=== PATIENT | female | born 1955 | race Caucasian/White ===

== ENCOUNTER 2016-11-13 15:52 | Inpatient (IN) | payer OTHER ==
[~2016-11-13] VITALS: Ht 157.5 cm; Wt 69.1 kg
[2016-11-13] MEDS ORDERED: METF10002 PO (16:22)
[2016-11-13] MEDS ORDERED: FLUT1DIS3 INH (16:22)
[2016-11-13] MEDS ORDERED: HYDR25TA6 PO (16:22)
[2016-11-13] MEDS ORDERED: AMLO5TAB2 PO (16:22)
[2016-11-13] MEDS ORDERED: ASPI-496 PO (16:22)
[2016-11-13] MEDS ORDERED: LOVA10TA PO (16:22)
[2016-11-13] MEDS ORDERED: LOSA100T6 PO (16:22)
[2016-11-13] MEDS ORDERED: SODIUM CHLORIDE FLUSH 10ML SYR IVF ONE (16:30)
[2016-11-13] MEDS ORDERED: ONDANSETRON 2MG/ML, 2ML IVPush ONE (16:30)
[2016-11-13 16:50] LABS: BLOOD UREA NITROGEN 18 mg/dL (7-18)
[2016-11-13 16:55] LABS: IS PT STATUS REG ER OR PRE ER? YES
[2016-11-13] MEDS ORDERED: ASPIRIN 81 MG TABLET CHEW PO ONE (17:00)
[2016-11-13] MEDS ORDERED: ONDANSETRON 2MG/ML, 2ML ONE (17:22)
[2016-11-13] MEDS ORDERED: ASPIRIN 81 MG TABLET CHEW ONE (17:22)
[2016-11-13] MEDS ORDERED: morphine SULFATE 10 MG/ML, 1ML IVPush PRN (18:30)
[2016-11-13] MEDS ORDERED: TEMAZEPAM 15 MG CAPSULE PO PRN (18:30)
[2016-11-13] MEDS ORDERED: DOCUSATE 100 MG CAPSULE PO PRN (18:30)
[2016-11-13] MEDS ORDERED: HEPARIN 5,000 UNITS/ML, 1ML ONE (19:06)
[2016-11-13] MEDS: HEPARIN 5,000 UNITS/ML, 1ML SQ SCH (19:09)
[2016-11-13] MEDS ORDERED: LOVASTATIN 40 MG TABLET PO SCH (21:00)
[2016-11-13] MEDS ORDERED: ALBUTEROL SULFATE 2.5 MG/3 ML NPPB PRN (21:30)
[2016-11-13] MEDS: INSULIN ASPART 100 UNITS/ML, PEN SQ-INSULIN SCH (22:25)
[2016-11-13 22:28] VITALS: BP 150/89
[2016-11-13 23:02] LABS: IS PT STATUS REG ER OR PRE ER? NO
[2016-11-14] MEDS ORDERED: PNEUMOCOCCAL 23 VACCINE IM-VACC ONE (02:30)
[2016-11-14 03:39] VITALS: BP 129/77
[2016-11-14] MEDS: HEPARIN 5,000 UNITS/ML, 1ML SQ SCH ×2 (03:41→12:02)
[2016-11-14 05:33] LABS: IS PT STATUS REG ER OR PRE ER? NO
[2016-11-14 06:45] VITALS: BP 115/71
[2016-11-14] MEDS: INSULIN ASPART 100 UNITS/ML, PEN SQ-INSULIN SCH ×2 (07:53→12:02)
[2016-11-14] MEDS ORDERED: REGADENOSON 0.4 MG/5 ML SYRINGE ONE (08:13)
[2016-11-14] MEDS ORDERED: FLUTICASONE/VILANTEROL 100-25MCG/INH INH SCH (09:00)
[2016-11-14] MEDS ORDERED: AMLODIPINE 5 MG TABLET PO SCH (09:00)
[2016-11-14] MEDS ORDERED: HYDROCHLOROTHIAZIDE 25 MG TABLET PO SCH (09:00)
[2016-11-14] MEDS ORDERED: LOSARTAN 50MG TABLET PO SCH (09:00)
[2016-11-14] MEDS ORDERED: ASPIRIN 81 MG TABLET EC PO SCH (09:00)
[2016-11-14 12:48] VITALS: BP 144/80
[2016-11-14] MEDS ORDERED: ALBU18HF INH (15:36)
[2016-11-14] MEDS ORDERED: CARV6.2512 PO (15:36)
[2016-11-14] MEDS ORDERED: CARVEDILOL 6.25 MG TABLET PO SCH (18:00)
== END 2016-11-14 17:00 | disposition home or self-care (01) | DRG 392 ==
LOC: ED 17:35 → EDIP 17:36 → ED 18:02 → 5SO 20:27 → DCLOUNGE 11-14 16:40
PROVIDERS: ADMIT Family Medicine; ATTEND Family Medicine
DX: K21.9 Gastro-esophageal reflux disease without esophagitis (principal); J45.901 Unspecified asthma with (acute) exacerbation; I10 Essential (primary) hypertension; E78.5 Hyperlipidemia, unspecified; R00.0 Tachycardia, unspecified; D72.829 Elevated white blood cell count, unspecified; E78.00 Pure hypercholesterolemia, unspecified; M41.9 Scoliosis, unspecified; E11.9 Type 2 diabetes mellitus without complications; R94.31 Abnormal electrocardiogram [ECG] [EKG]; Z79.51 Long term (current) use of inhaled steroids; Z87.891 Personal history of nicotine dependence; Z88.8 Allergy status to other drugs, medicaments and biological substances; Z79.899 Other long term (current) drug therapy
CPT/HCPCS: 36415; 71010; 78452; 80048; 80061; 82040; 82962; 83036; 83735; 83880; 84100; 84439; 84443; 84484; 85025; 85379; 85610; 85730; 90732; 93005; 93017; 93306; 96372; J1644; J1815; J2785; A9502; C9898